=== PATIENT | female | born 1955 | race African-American/Black ===

== ENCOUNTER 2018-10-26 06:05 | Day surgery (SDC) | payer BC ==
[2018-10-19 13:43] VITALS: BMI 24.3
[2018-10-26] MEDS ORDERED: PROPOFOL 20 ML ONE (07:21)
[2018-10-26] MEDS ORDERED: SUCCINYLCHOLINE CHLORIDE 200 MG/10 ML VIAL ONE (07:21)
[2018-10-26] MEDS ORDERED: MIDAZOLAM HCL 2 MG/2 ML SINGLE DOSE VIAL ONE (07:22)
[2018-10-26] MEDS ORDERED: LIDOCAINE HCL 2% (20ML MULTI-DOSE VIAL) NR ONE (07:36)
[2018-10-26] MEDS ORDERED: BUPIVACAINE HCL/PF 0.5% (5MG/ML) 10 ML VIAL ONE (07:36)
[2018-10-26] MEDS ORDERED: ceFAZolin SODIUM 1 GM VIAL ONE (08:09)
[2018-10-26] MEDS ORDERED: DEXAMETHASONE SOD PHOSPHATE 4 MG/1 ML VIAL ONE (08:10)
[2018-10-26] MEDS ORDERED: ONDANSETRON 4 MG/2 ML VIAL ONE (08:10)
[2018-10-26] MEDS ORDERED: LIDOCAINE HCL 2% (50ML VIAL) INF ONE (08:23)
[2018-10-26] MEDS ORDERED: BUPIVACAINE HCL/PF 0.5% (5MG/ML) 10 ML VIAL IJ ONE (09:25)
[2018-10-26] MEDS ORDERED: oxyCODONE HCL 5 MG TABLET PO PRN ×2 (10:13)
[2018-10-26] MEDS ORDERED: ONDANSETRON 4 MG/2 ML VIAL IVPUSH PRN (10:13)
[2018-10-26] MEDS ORDERED: LACTATED RINGERS SOLUTION 1,000 ML IV SCH (10:15)
[2018-10-26 10:16] VITALS: TEMP 98.6
[2018-10-26 11:16] VITALS: BP 141/83; PULSE 76
--- NOTE | 2018-10-26 14:32 | OP ---
DATE OF OPERATION: 10/26/2018 SURGEON: Pablito Saini MD SHUTTLE FINAL INSPECTOR: Lydia Cantrell PGY-3 PREOPERATIVE DIAGNOSIS: Hallux abductus interphalangeus, right foot, and hammertoe of the 2nd digit with exostosis, right foot. POSTOPERATIVE DIAGNOSIS: Hallux abductus interphalangeus, right foot, and exostosis of the right 2nd toe. PROCEDURES: 1. Damien Osteotomy with stable fixation, right foot. 2. Exostectomy of the head of the proximal phalanx, 2nd toe, right foot. . ANESTHESIA: IV MAC with local. HEMOSTASIS: Pneumatic ankle tourniquet to 250 mmHg. ESTIMATED BLOOD LOSS: Minimal. DESCRIPTION OF PROCEDURE: The patient was brought to the operating room and placed on the operating table in a supine position. After adequate IV sedation, a local infiltrative block was administered utilizing 2% lidocaine plain. A total of 20 mL was injected throughout the surgical site. The right foot was then scrubbed, prepped, and draped in the usual aseptic fashion. Upon exsanguination of the right foot with an Esmarch bandage and previous placement of padding at the ankle, the pneumatic ankle tourniquet was inflated to 250 mmHg. Surgery began in the following manner. Attention was first directed to the dorsal aspect of the right hallux, where a linear incision was made medial to the extensor hallucis longus tendon along the length of the proximal phalanx. It was approximately 1 to 1.5 cm in length. The incision was deepened through the subcutaneous tissue using sharp and blunt dissection. Care was taken to identify and retract all vital neural and vascular structures. All bleeders were cauterized as necessary. Next, the periosteal and capsular structures were then carefully dissected free of its attachments on the proximal phalanx and refracted medially and laterally, thus exposing the length of the proximal phalanx to the operative site. Next, utilizing an oscillating sagittal saw, a through and through wedge osteotomy was created in the metaphyseal region of the proximal phalanx. The apex of the wedge was lateral with the base medial. Upon completion of the osteotomy, the wedge was shaped, a portion of bone was removed from the operative field, and the osteotomy was closed down medially and held in this corrected position. Next, utilizing a 10-mm [employer] staple, this was inserted across the osteotomy site with adequate compression noted across the osteotomy. The correction of the deformity was assessed at this time and noted to be excellent. The surgical site was then irrigated with copious amount of normal saline, and the periosteal and capsular structures were reapproximated using 3-0 Vicryl sutures, and subcutaneous tissue was closed using 4-0 Vicryl suture, and skin was closed using 4-0 nylon suture. Attention was then directed to 2nd digit of the right foot, where a linear incision was made on the medial aspect of the proximal interphalangeal joint. The incision was then deepened through the subcutaneous tissue and with care being taken to identify and retract all vital neural and vascular structures. At this time, capsulotomy was performed, and the medial prominence aspect of the head of the proximal phalanx was freed from its capsular and ligamentous attachments medially. Using a rongeur, the medial exostosis was removed and the medial prominence was noted to be reduced. The wound was then irrigated with copious amount of normal saline, and deformity was reduced. At this time, the capsular structures were sutured using 4-0 Vicryl suture and the skin was closed using 4-0 nylon suture. Postoperative injection including 15 mL of 0.5% Marcaine plain was introduced throughout the surgical sites. Postoperative dressing such as Xeroform, 4x4s, sterile gauze, Juan, and Coban applied to the right foot. Fluoroscopy was used, and both toes of the great toe as well as the 2nd digit noted to be corrected. At this time, the right ankle tourniquet was deflated, and immediate hyperemia was noted to all digits of the right foot. Patient tolerated the procedures and anesthesia well and was transferred to the post-anesthesia care unit with vital signs stable and vascular status intact to the right lower extremity. Capillary filling time was less than 3 seconds to all digits of the right foot. ELENITA JORDAN/[id number]
--- NOTE | 2018-11-02 16:14 | PATH ---
Surgical Pathology Report Patient Name: LAURA BROUSSARD [facility]. Rec. #: [id number] /Age/Gender: 1955 (Age: 63) / F Account: [id number] Location: [facility] Taken: 10/26/2018 Received: 10/26/2018 Reported: 11/02/2018 Physicians: Pablito Saini M.D. Specimen(s) Received A: RIGHT SECOND TOE BONE B: RIGHT FIRST TOE BONE Clinical History Right first and second toe bunion Final Diagnosis A. BONE, RIGHT SECOND TOE, EXCISION: CARTILAGE-CAPPED BONE WITH NO PATHOLOGIC FINDINGS. B. BONE, RIGHT FIRST TOE, EXCISION: BONE WITH NO PATHOLOGIC FINDINGS. Electronically Signed Dolores Xiao M.D. Gross Description A. Received in formalin labeled "right second toe bone," is a 0.5 x 0.3 x 0.2 cm tarango-yellow bone fragment. The specimen is submitted in toto in one cassette, following decalcification. B. Received in formalin labeled "right first toe bone," are 2 tarango-yellow bone fragments measuring 0.8 x 0.3 x 0.2 cm and 0.9 x 0.3 x 0.1 cm. The specimens are submitted in toto in one cassette, following decalcification. 10/28/201810/28/2018
== END 2018-10-26 11:17 | disposition home or self-care (01) ==
LOC: FASU 06:05
PROVIDERS: ATTEND Podiatrist Foot Surgery
PROC: 0SRP0JZ Replacement of Right Toe Phalangeal Joint with Synthetic Substitute, Open Approach (ICD-10-PCS; principal; 2018-10-26 08:23)
PROC: 0QSN04Z Reposition Right Metatarsal with Internal Fixation Device, Open Approach (ICD-10-PCS; 2018-10-26 08:23)
DX: M20.11 Hallux valgus (acquired), right foot (principal); M20.41 Other hammer toe(s) (acquired), right foot
CPT/HCPCS: 73630-TC-RT-FY; 88304-TC; 88311-TC